=== PATIENT | female | born 1965 | race Caucasian/White ===

== ENCOUNTER → 2016-11-30 | Day surgery (SDC) | payer OTHER ==
[~2016-11-30] MED LIST: ACETAMINOPHEN325 MG PO; ALDACTONE100 MG PO; ASPIR 8181 MG PO; CLARITIN10 MG PO; FENOFIBRATE160 MG PO; GLUCOPHAGE1000 MG PO; HUMALOG100 UNIT/1 INJ; LANTUS100 UNIT/1 INJ; LASIX40 MG PO; LIPITOR40 MG PO; LIPITOR80 MG PO; NEURONTIN100 MG PO; NEURONTIN600 MG PO; NORVASC5 MG PO; ONCE DAILY1 EACH PO; PAXIL20 MG PO; TENORETIC 1001 EACH PO; VASOTEC20 MG PO; VISTARIL25 MG PO
== END | disposition home or self-care (01) ==
LOC: SDCH 07:25
DX: D12.2 Benign neoplasm of ascending colon (principal); D12.3 Benign neoplasm of transverse colon; K20.9 Esophagitis, unspecified; K22.70 Barrett's esophagus without dysplasia; K26.9 Duodenal ulcer, unspecified as acute or chronic, without hemorrhage or perforation; K57.30 Diverticulosis of large intestine without perforation or abscess without bleeding; K64.8 Other hemorrhoids; E11.9 Type 2 diabetes mellitus without complications; I10 Essential (primary) hypertension; G47.33 Obstructive sleep apnea (adult) (pediatric); M19.90 Unspecified osteoarthritis, unspecified site; Z90.49 Acquired absence of other specified parts of digestive tract; Z98.51 Tubal ligation status; Z88.0 Allergy status to penicillin
CPT/HCPCS: J2704